=== PATIENT | male | born 1945 | race Caucasian/White ===

== ENCOUNTER 2018-04-04 07:43 | Emergency (ER) | payer OTHER ==
[~2018-04-04] VITALS: Ht 177.8 cm; Wt 100.2 kg
[2018-04-04 07:55] VITALS: BP 108/44
[2018-04-04 08:25] LABS: HEMATOCRIT 37.2 % (38.0-50.0); HEMOGLOBIN 11.6 G/DL (12.5-16.6); MCH 30.4 PG (29.0-34.0); MCHC 31.2 G/DL (30.0-36.0); MCV 97.6 FL (86-99); NRBC (%) 0.3 /100 WBC (0-0); PLATELET COUNT 115 K/uL (156-360); RBC DIS.WIDTH-CV 13.3 % (11.8-14.6); RBC DIS.WIDTH-SD 47.2 % (39-53); RED BLOOD COUNT 3.81 M/uL (4.00-5.50); WHITE BLOOD COUNT 8.6 K/uL (4.1-10.2)
[2018-04-04 08:30] LABS: INTER. NORMALIZED RATIO 1.5
[2018-04-04 08:33] LABS: PTT 77.9 SEC (25-37)
[2018-04-04 08:35] LABS: CHLORIDE 100 mEq/L (99-109); POTASSIUM 5.6 mEq/L (3.7-5.4); SODIUM 145 mEq/L (136-147)
[2018-04-04 08:40] LABS: SERUM ETHYL ALCOHOL 12 mg/dL
[2018-04-04 08:45] LABS: TROP-I INTERPRETATION INDETERMINATE; TROPONIN-I 0.38 ng/mL (0.0-0.30)
[2018-04-04 09:12] LABS: ABS NEUTROPHIL COUNT 3.6; ANISOCYTOSIS 1+; ATYPICAL LYMPHOCYTE 0.9 %; BAND NEUTROPHILS 0.9 % (0-8.0); BASOPHILS 0.9 %; EOSINOPHIL ABS CT 0; LYMPHOCYTES 51.8 % (15.0-45.0); METAMYELOCYTES 2.8 %; MONOCYTES 0.9 % (0-9.0); MYELOCYTES 0.9 %; PLAT.SUFFICIENCY DECREASED; SEG.NEUTROPHILS 40.9 % (46.0-76.0)
[2018-04-04 09:13] LABS: AMYLASE 46 IU/L (1-118)
[2018-04-04 09:19] LABS: CREATININE 1.9 mg/dL (0.6-1.3); GFR ESTIMATE (CALCULATED) 37 mL/min/ (58.99-99999)
[2018-04-04 09:20] LABS: UREA NITROGEN (BUN) 16 mg/dL (9-23)
[2018-04-04 09:22] LABS: GLUCOSE 719 mg/dL (70-99); LIPASE 36 U/L (1.0-51.0)
== END 2018-04-04 08:32 ==
LOC: EDBD 07:43 → EME 07:43
PROVIDERS: Emergency Medicine
DX: I46.9 Cardiac arrest, cause unspecified (principal)
CPT/HCPCS: 80047; 80048; 81003; 82150; 82948; 83605; 83690; 84484; 85025; 85610; 85730; 86850; 86900; 86901; 87040; 93005; 99281; 99285; C1751; G0480; J0461